=== PATIENT | male | born 1985 | race Two or more races ===

== ENCOUNTER 2016-11-22 04:44 | Emergency (ER) | payer OTHER ==
[~2016-11-22] VITALS: Ht 180.3 cm; Wt 77.1 kg
[~2016-11-22 04:44] MED LIST: CIPROFLOXACIN500 M2 ORAL; ODEFSEY TABLET1 EACH PO; RANITIDINE HCL150 MG ORAL; ZOFRAN ODT4 MG ORAL
[2016-11-22 04:57] VITALS: BP 151/103
[2016-11-22] MEDS ORDERED: HYDROmorphone 1mg/ml Carpuject IVP ONE (05:15)
[2016-11-22] MEDS ORDERED: Pantoprazole Inj IV ONE (05:15)
[2016-11-22 05:17] LABS: BASOPHILS % (AUTO) 0.2 % (0.0-2.0); EOSINOPHILS % (AUTO) 0.1 % (0.0-3.0); LYMPHOCYTES % (AUTO) 17.9 % (20.0-45.0); MEAN CORPUSCULAR HEMOGLOBIN 32.9 PG (27.0-31.0); MEAN CORPUSCULAR HGB CONC 33.6 G/DL (32.0-36.0); MEAN CORPUSCULAR VOLUME 98 FL (80-99); MEAN PLATELET VOLUME 10.3 FL (6.5-10.1); MONOCYTES % (AUTO) 5.3 % (1.0-10.0); NEUTROPHILS % (AUTO) 76.5 % (45.0-75.0); PLATELET COUNT 151 K/UL (150-450); RED BLOOD COUNT 4.54 M/UL (4.70-6.10); RED CELL DISTRIBUTION WIDTH 10.9 % (11.6-14.8); WHITE BLOOD COUNT 5.8 K/UL (4.8-10.8)
--- NOTE | 2016-11-22 05:21 | Emergency Room Report ---
History of Present Illness General Chief Complaint: Nausea, Vomiting, and Diarrhea Source: Patient Present Illness HPI Is a 31-year-old male with a history alcohol abuse. He also has a history alcoholic gastritis. Last drink was over a week ago. He presents with chief complaint of epigastric pain and intractable vomiting. Onset for one day. Pain is 10 out of 10. Unable to keep anything down. Denies any fever chills patient is symptom in the past. No radiation. No diarrhea. No fever. Allergies: Coded Allergies: No Known Allergies (Unverified , 09/05/14) Patient History Past Medical History: see triage record, old chart reviewed Past Surgical History: other Pertinent Family History: none Social History: Reports: alcohol use Immunizations: other Reviewed Nursing Documentation: PMH: Agreed, PSxH: Agreed Review of Systems Eye: Denies: blurred vision, eye pain ENT: Denies: ear pain, nose congestion, throat swelling Respiratory: Denies: cough, shortness of breath Cardiovascular: Denies: chest pain, palpitations Gastrointestinal: Reports: abdominal pain, nausea, vomiting, Denies: diarrhea Musculoskeletal: Denies: back pain, joint pain Skin: Denies: rash Neurological: Denies: headache, numbness Endocrine: Denies: increased thirst, increased urine Hematologic/Lymphatic: Denies: easy bruising All Other Systems: negative except mentioned in HPI Physical Exam Vital Signs Date Time Temp Pulse Resp B/P Pulse Ox O2 Delivery O2 Flow Rate FiO2 11/22/16 04:49 98.1 86 18 151/103 98 Room Air vitals with hypertension Sp02 EP Interpretation: reviewed, normal General Appearance: well appearing, no apparent distress, alert Head: normocephalic, atraumatic Eyes: bilateral eye EOMI, bilateral eye PERRL ENT: hearing grossly normal, normal pharynx Neck: full range of motion, supple, no meningismus Respiratory: chest non-tender, lungs clear, normal breath sounds Cardiovascular #1: regular rate, rhythm, no murmur Gastrointestinal: no mass, no organomegaly, no bruit, non-distended, abnormal bowel sounds - Increased, tenderness - Epigastric area Musculoskeletal: back normal, gait/station normal, normal range of motion Neurologic: alert, oriented x3 Psychiatric: mood/affect normal Skin: warm/dry Medical Decision Making Diagnostic Impression: Primary Impression: Alcoholic gastritis Qualified Codes: K29.20 - Alcoholic gastritis without bleeding Additional Impression: Vomiting Qualified Codes: R11.2 - Nausea with vomiting, unspecified ER Course Patient has with abdominal pain and vomiting. He felt better now. No evidence of obstruction. We'll discharge home. Lab Results Impression labs unremarkable Last Vital Signs Date Time Temp Pulse Resp B/P Pulse Ox O2 Delivery O2 Flow Rate FiO2 11/22/16 04:49 98.1 86 18 151/103 98 Room Air Status: improved Disposition: HOME, SELF-CARE Condition: Stable Scripts Omeprazole Magnesium (PRILOSEC OTC) 20 Mg Tablet. 20 MG ORAL DAILY, #30 TAB Prov: VERONIKA SALAZAR M.D. 11/22/16 Referrals: [facility],REFERRING (PCP) Patient Instructions: DIET, Vomiting or Diarrhea [6yr-Adult] Additional Instructions: Abstain from alcohol. Followup your DrJames in 2 to 3 days. Return if worse. VERONIKA SALAZAR M.D. Nov 22, 2016 05:21
[2016-11-22 05:31] LABS: ALANINE AMINOTRANSFERASE 11 U/L (3-41); ALBUMIN/GLOBULIN RATIO 1.2 (1.0-2.7); ANION GAP 11 (5-15); ASPARTATE AMINO TRANSFERASE 24 U/L (5-40); CALCIUM 9.8 mg/dL (8.6-10.2); CARBON DIOXIDE 28 mEQ/L (20-30); CHLORIDE 99 mEQ/L (98-107); GLOMERULAR FILTRATION RATE > 60 mL/min (>60); HEMOLYSIS 4; LIPASE 22 U/L (< 60); POTASSIUM 3.7 mEQ/L (3.4-4.9); SODIUM 138 mEQ/L (135-145); TOTAL PROTEIN 8.6 g/dL (6.6-8.7)
[2016-11-22] MEDS ORDERED: PRILOSEC OTC20 MG ORAL (06:16)
[2016-11-22 06:25] VITALS: BP 151/103
== END 2016-11-22 06:29 | disposition home or self-care (01) ==
LOC: EMR 04:59
DX: K29.20 Alcoholic gastritis without bleeding (principal)
CPT/HCPCS: 36415; 80053; 83690; 85025; 96374; 96375; 99284; C9113; J1170; J2405

== ENCOUNTER 2020-02-10 16:43 | Emergency (ER) | payer SELFPAY ==
[~2020-02-10] VITALS: Ht 180.3 cm; Wt 86.2 kg
[~2020-02-10 16:43] MED LIST changes: +PRILOSEC OTC20 MG ORAL
[2020-02-10 16:57] VITALS: BP 154/103
--- NOTE | 2020-02-10 16:57 | NUR ---
ED Nurse Note: Pt walked in to ED from home c/o nausea and vomiting onset today. Deneis abdominal pain/ diarrhea. No episode of vomiting at this time. AAOx4, verbally responisve. No SOB, on room air. ERMD at bedside.
--- NOTE | 2020-02-10 17:12 | Emergency Room Report ---
History of Present Illness General Chief Complaint: Vomiting Source: Patient Present Illness HPI Disclaimer: Please note that this report is being documented using [employer] technology. This can lead to erroneous entry secondary to incorrect interpretation by the dictating instrument. HPI: 34-year-old otherwise healthy male presents for evaluation of vomiting. Patient states he awoke this morning and has been vomiting since. Unable to hold down solids or liquids. Reports mild diarrhea. Denies abdominal pain or cramping. Reports increased belching and flatulence. Denies hematemesis, melena or hematochezia. He ate takeout food last night. Denies alcohol or drug use. Denies headache, fever, chills, chest pain, shortness of breath, cough, rash or other symptoms. PMH: Denies PSH: Denies Allergies: Denies Social Hx: Denies Allergies: Coded Allergies: No Known Allergies (Unverified , 09/05/14) COVID-19 Screening Contact w/high risk pt: No Experienced COVID-19 symptoms?: No COVID-19 Testing performed LMSW: No Nursing Documentation-PMH Past Medical History: No Stated History Review of Systems All Other Systems: negative except mentioned in HPI Physical Exam Vital Signs Date Time Temp Pulse Resp B/P (MAP) Pulse Ox O2 Delivery O2 Flow Rate FiO2 02/10/20 16:54 98.1 60 18 154/103 (120) 97 Room Air General: Awake and alert, no acute distress HEENT: NC/AT. EOMI. Cardiovascular: RRR. S1 and S2 normal. No murmur appreciated Resp: Normal work of breathing. No cough, wheezing or crackles appreciated Abdomen: Abdomen is soft, nondistended. Nontender, no masses, no rebound Skin: Intact. No abrasions, laceration or rash over the exposed skin MSK: Normal tone and bulk. Moving all extremities. No obvious deformity. Neuro: Awake and alert. Mentating appropriately. Medical Decision Making Diagnostic Impression: Primary Impression: Gastritis ER Course Is a 34-year-old male presenting for evaluation of persistent vomiting since this morning. Differential includes was not limited to gastritis, gastroenteritis, pancreatitis, cholecystitis, sinusitis, food poisoning, diverticulitis among others. He is well-appearing, abdominal exam is u nremarkable. Patient given IV fluids, antacids, antiemetics. Labs returned within normal limits. After observing the patient in the emergency department some time his symptoms appear to be under control. He was able to eat and drink at bedside. Requesting prescription for antacids and antinausea medications which I will provide. Likely a gastritis, possibly due to food. Will discharge home with outpatient follow-up. Instructed to return with new or worsening symptoms. He understands and agrees with this treatment plan. Laboratory Tests Test 02/10/20 17:16 02/10/20 18:16 White Blood Count 14.3 K/UL (4.8-10.8) H Red Blood Count 4.36 M/UL (4.70-6.10) L Hemoglobin 14.4 G/DL (14.2-18.0) Hematocrit 42.7 % (42.0-52.0) Mean Corpuscular Volume 98 FL (80-99) Mean Corpuscular Hemoglobin 33.1 PG (27.0-31.0) H Mean Corpuscular Hemoglobin Concent 33.8 G/DL (32.0-36.0) Red Cell Distribution Width 11.9 % (11.6-14.8) Platelet Count 173 K/UL (150-450) Mean Platelet Volume 10.7 FL (6.5-10.1) H Neutrophils (%) (Auto) % (45.0-75.0) Lymphocytes (%) (Auto) % (20.0-45.0) Monocytes (%) (Auto) % (1.0-10.0) Eosinophils (%) (Auto) % (0.0-3.0) Basophils (%) (Auto) % (0.0-2.0) Differential Total Cells Counted 100 Neutrophils % (Manual) 87 % (45-75) H Lymphocytes % (Manual) 10 % (20-45) L Monocytes % (Manual) 1 % (1-10) Eosinophils % (Manual) 0 % (0-3) Basophils % (Manual) 0 % (0-2) Band Neutrophils 2 % (0-8) Platelet Estimate Adequate Platelet Morphology Normal Sodium Level 139 MMOL/L (136-145) Potassium Level 3.8 MMOL/L (3.5-5.1) Chloride Level 103 MMOL/L (98-107) Carbon Dioxide Level 26 MMOL/L (21-32) Anion Gap 10 mmol/L (5-15) Blood Urea Nitrogen 18 mg/dL (7-18) Creatinine 1.2 MG/DL (0.55-1.30) Estimated Glomerular Filtration Rate > 60 mL/min (>60) Glucose Level 142 MG/DL (74-106) H Calcium Level 9.4 MG/DL (8.5-10.1) Total Bilirubin 0.7 MG/DL (0.2-1.0) Aspartate Amino Transferase (AST) 21 U/L (15-37) Alanine Aminotransferase (ALT) 16 U/L (12-78) Alkaline Phosphatase 42 U/L (46-116) L Total Protein 7.6 G/DL (6.4-8.2) Albumin 4.5 G/DL (3.4-5.0) Globulin 3.1 g/dL Albumin/Globulin Ratio 1.5 (1.0-2.7) Lipase 72 U/L (73-393) L Urine Color Yellow Urine Appearance Clear Urine pH 8 (4.5-8.0) Urine Specific [place] 1.010 (1.005-1.035) Urine Protein 1+ (NEGATIVE) H Urine Glucose (UA) Negative (NEGATIVE) Urine Ketones 4+ (NEGATIVE) H Urine Blood 1+ (NEGATIVE) H Urine Nitrite Negative (NEGATIVE) Urine Bilirubin Negative (NEGATIVE) Urine Urobilinogen Normal MG/DL (0.0-1.0) Urine Leukocyte Esterase Negative (NEGATIVE) Urine RBC 5-10 /HPF (0 - 0) H Urine WBC 0-2 /HPF (0 - 0) Urine Squamous Epithelial Cells None /LPF (NONE/OCC) Urine Bacteria Few /HPF (NONE) Last Vital Signs Date Time Temp Pulse Resp B/P (MAP) Pulse Ox O2 Delivery O2 Flow Rate FiO2 02/10/20 16:57 60 18 Room Air 02/10/20 16:57 98.1 154/103 97 Disposition: HOME, SELF-CARE Condition: Stable Scripts Famotidine* (Pepcid 20mg tablet*) 20 Mg Tablet 20 MG ORAL DAILY for Gerd, #30 TAB 0 Refills Prov: Evelio Leiva MD 02/10/20 Ondansetron Odt* (ZOFRAN ODT*) 4 Mg Tab.rapdis 4 MG BC EVERY 6 HOURS PRN for Nausea & Vomiting, #20 TAB 0 Refills Prov: Evelio Leiva MD 02/10/20 Evelio Leiva MD Feb 10, 2020 17:12
--- NOTE | 2020-02-10 17:16 | NUR ---
ED Nurse Note: IV line established. Blood sent to lab.
[2020-02-10 17:34] LABS: HEMATOCRIT 42.7 % (42.0-52.0); HEMOGLOBIN 14.4 G/DL (14.2-18.0); MEAN CORPUSCULAR VOLUME 98 FL (80-99); PLATELET COUNT 173 K/UL (150-450); RED BLOOD COUNT 4.36 M/UL (4.70-6.10); RED CELL DISTRIBUTION WIDTH 11.9 % (11.6-14.8); WHITE BLOOD COUNT 14.3 K/UL (4.8-10.8)
[2020-02-10 17:43] LABS: ANION GAP 10 mmol/L (5-15); BLOOD UREA NITROGEN 18 mg/dL (7-18); CALCIUM 9.4 MG/DL (8.5-10.1); CARBON DIOXIDE 26 MMOL/L (21-32); CHLORIDE 103 MMOL/L (98-107); CREATININE 1.2 MG/DL (0.55-1.30); POTASSIUM 3.8 MMOL/L (3.5-5.1); SODIUM 139 MMOL/L (136-145)
[2020-02-10 17:49] LABS: ALANINE AMINOTRANSFERASE 16 U/L (12-78); ALBUMIN 4.5 G/DL (3.4-5.0); ALBUMIN/GLOBULIN RATIO 1.5 (1.0-2.7); ALKALINE PHOSPHATASE 42 U/L (46-116); ASPARTATE AMINO TRANSFERASE 21 U/L (15-37); BILIRUBIN,TOTAL 0.7 MG/DL (0.2-1.0)
--- NOTE | 2020-02-10 18:16 | NUR ---
ED Nurse Note: Urine sent to lab.
[2020-02-10 18:48] LABS: APPEARANCE,URINE CLEAR; BILIRUBIN, URINE NEGATIVE (NEGATIVE); GLUCOSE, URINE (UA) NEGATIVE (NEGATIVE); KETONES,URINE 4+ (NEGATIVE); LEUKOCYTE ESTERASE ,URINE NEGATIVE (NEGATIVE); NITRITE,URINE NEGATIVE (NEGATIVE); PH,URINE 8 (4.5-8.0); PROTEIN,URINE 1+ (NEGATIVE); UROBILINOGEN,URINE NORMAL MG/DL (0.0-1.0)
[2020-02-10 18:52] LABS: COLOR,URINE YELLOW
[2020-02-10] MEDS ORDERED: ONDANSETRON ODT4 MG BC (19:16)
[2020-02-10] MEDS ORDERED: FAMOTIDINE20 MG ORAL (19:26)
[2020-02-10 19:33] VITALS: BP 123/74
--- NOTE | 2020-02-10 19:33 | NUR ---
ED Nurse Note: Pt cleared by ERMD for discharge. DC instructions/prescription was given and explained to pt and verbalized understanding of teachings. All medical deviecs such as ID band and IV line removed. Pt is AAO x4, ambulatory and left with all personal belongings.
== END 2020-02-10 19:33 | disposition home or self-care (01) ==
LOC: EMR 18:45
DX: K29.70 Gastritis, unspecified, without bleeding (principal)
CPT/HCPCS: 36415; 80053; 81003; 83690; 85007; 85025; 96361; 96374; 96375; 99284; J2405; J7030; S0028

== ENCOUNTER 2020-02-12 04:32 | Emergency (ER) | payer SELFPAY ==
[~2020-02-12] VITALS: Ht 180.3 cm; Wt 86.2 kg
[~2020-02-12 04:32] MED LIST changes: +FAMOTIDINE20 MG ORAL; +ONDANSETRON ODT4 MG BC
[2020-02-12 04:44] VITALS: BP 156/108
--- NOTE | 2020-02-12 04:44 | NUR ---
ED Nurse Note: pt walked into ED from home c/o n/v. Pt stated he was here yesterday for food poisoning and felt better after treatment. Today in the AM pt continued vomiting and condition worsened. Pt is dry heaving on arrival, breathing even and unlabored. Vital signs stable as documented.
--- NOTE | 2020-02-12 04:53 | Emergency Room Report ---
History of Present Illness General Chief Complaint: Nausea, Vomiting, and Diarrhea Source: Patient, Medical Record Present Illness HPI This is a 34-year-old male with no past medical history. He does have a history of alcoholic gastritis in the past. He presents with chief complaint of nausea and vomiting abdominal pain. Onset for the last 2 days. He woke up with this. Is actually here yesterday. Laboratory data did not show any leukocytosis but otherwise unremarkable. He got better and was discharged home. He said that since then is been persisting vomiting. Prescribed medication not helping. No fever chills. Vomiting is nonbloody nonbilious. No longer having diarrhea. Nothing made it better. Nothing made it worse. Pain is epigastric in nature. 7 out of 10. Allergies: Coded Allergies: No Known Allergies (Unverified , 09/05/14) COVID-19 Screening Contact w/high risk pt: No Experienced COVID-19 symptoms?: No COVID-19 Testing performed MENTAL HEALTH COORDINATOR: No Patient History Past Medical History: see triage record, old chart reviewed Past Surgical History: none Pertinent Family History: none Social History: Reports: alcohol use - history Immunizations: other Reviewed Nursing Documentation: PMH: Agreed; PSxH: Agreed Review of Systems Eye: Denies: eye pain, blurred vision ENT: Denies: ear pain, nose congestion, throat swelling Respiratory: Denies: cough, shortness of breath Cardiovascular: Denies: chest pain, palpitations Gastrointestinal: Reports: abdominal pain, nausea, vomiting; Denies: diarrhea Musculoskeletal: Denies: back pain, joint pain Skin: Denies: rash Neurological: Denies: headache, numbness Endocrine: Denies: increased thirst, increased urine Hematologic/Lymphatic: Denies: easy bruising All Other Systems: negative except mentioned in HPI Physical Exam Vital Signs Date Time Temp Pulse Resp B/P (MAP) Pulse Ox O2 Delivery O2 Flow Rate FiO2 02/12/20 04:36 98.4 57 22 156/108 (124) 97 Room Air Vitals with high blood pressure Sp02 EP Interpretation: reviewed, normal General Appearance: well appearing, no apparent distress, alert Head: normocephalic, atraumatic Eyes: bilateral eye PERRL, bilateral eye EOMI ENT: hearing grossly normal, normal pharynx Neck: full range of motion, supple, no meningismus Respiratory: chest non-tender, lungs clear, normal breath sounds Cardiovascular #1: regular rate, rhythm, no murmur Gastrointestinal: no mass, no organomegaly, no bruit, non-distended, tenderness - Epigastric, decreased bowel sounds Musculoskeletal: back normal, normal range of motion, gait/station normal Psychiatric: mood/affect normal Medical Decision Making Diagnostic Impression: Primary Impression: Abdominal pain Qualified Codes: R10.84 - Generalized abdominal pain Additional Impressions: Nausea & vomiting Qualified Codes: R11.2 - Nausea with vomiting, unspecified Hypokalemia JOE (acute kidney injury) ER Course Patient presents with nausea and vomiting. Also with abdominal pain. This may be cyclic vomiting syndrome, gastroparesis, foodborne illness to name a few. Better after IV fluids and pain medication. Will observe if he improved and tolerate p.o. If not may be admitted. CT/MRI/US Diagnostic Results CT/MRI/US Diagnostic Results : Imaging Test Ordered: CT abdomen and pelvis Impression Read by radiologist. Negative. Last Vital Signs Date Time Temp Pulse Resp B/P (MAP) Pulse Ox O2 Delivery O2 Flow Rate FiO2 02/12/20 04:44 98.4 88 22 156/108 97 Room Air Status: improved Disposition: HOME, SELF-CARE Condition: Stable Scripts Ondansetron (Zofran) 4 Mg Tablet 4 MG ORAL Q6H PRN for Nausea & Vomiting, #30 TAB 0 Refills Prov: Ziggy Torres MD 02/12/20 Additional Instructions: Advance diet as tolerated. Follow-up with your doctor in 2-3 days if not better. Return if symptoms worsen. Ziggy Torres MD Feb 12, 2020 04:53
[2020-02-12] MEDS ORDERED: Pantoprazole Inj IV ONE (05:00)
[2020-02-12] MEDS ORDERED: HYDROmorphone 1mg/ml Carpuject IVP ONE (05:00)
--- NOTE | 2020-02-12 05:10 | NUR ---
ED Nurse Note: urine and blood sent to lab
--- NOTE | 2020-02-12 05:13 | NUR ---
ED Nurse Note: pt went down to CT via w/c accompanied by CT staff, pt in stable condition.
--- NOTE | 2020-02-12 05:20 | NUR ---
ED Nurse Note: pt back from CT in stable condition.
[2020-02-12 05:30] LABS: APPEARANCE,URINE CLEAR; BILIRUBIN, URINE NEGATIVE (NEGATIVE); GLUCOSE, URINE (UA) NEGATIVE (NEGATIVE); KETONES,URINE NEGATIVE (NEGATIVE); LEUKOCYTE ESTERASE ,URINE 1+ (NEGATIVE); NITRITE,URINE NEGATIVE (NEGATIVE); PH,URINE 5 (4.5-8.0); PROTEIN,URINE 1+ (NEGATIVE); UROBILINOGEN,URINE NORMAL MG/DL (0.0-1.0)
[2020-02-12 05:40] LABS: CALCIUM 8.6 MG/DL (8.5-10.1); CREATININE 1.5 MG/DL (0.55-1.30); POTASSIUM 2.9 MMOL/L (3.5-5.1)
[2020-02-12 05:42] LABS: BASOPHILS % (AUTO) 0.8 % (0.0-2.0); EOSINOPHILS % (AUTO) 0.8 % (0.0-3.0); HEMATOCRIT 40.5 % (42.0-52.0); HEMOGLOBIN 14.1 G/DL (14.2-18.0); LYMPHOCYTES % (AUTO) 38.4 % (20.0-45.0); MEAN CORPUSCULAR VOLUME 94 FL (80-99); MONOCYTES % (AUTO) 7.1 % (1.0-10.0); NEUTROPHILS % (AUTO) 52.9 % (45.0-75.0); PLATELET COUNT 190 K/UL (150-450); RED BLOOD COUNT 4.32 M/UL (4.70-6.10); RED CELL DISTRIBUTION WIDTH 11.1 % (11.6-14.8); WHITE BLOOD COUNT 12.5 K/UL (4.8-10.8)
[2020-02-12 05:45] LABS: ALBUMIN 4.1 G/DL (3.4-5.0); ALBUMIN/GLOBULIN RATIO 1.4 (1.0-2.7); BILIRUBIN,TOTAL 0.6 MG/DL (0.2-1.0); COLOR,URINE YELLOW
[2020-02-12] MEDS ORDERED: ZOFRAN4 MG ORAL (05:51)
--- NOTE | 2020-02-12 06:14 | NUR ---
ED Nurse Note: PO challenge done. pt tolerated apple juice. no c/o nausea, pt continues to burp.
--- NOTE | 2020-02-12 06:20 | Diagnostic Imaging Report ---
EXAM: CT Abdomen and Pelvis Without Intravenous Contrast CLINICAL HISTORY: ABD PAIN TECHNIQUE: Axial computed tomography images of the abdomen and pelvis without intravenous contrast. CTDI is 7 mGy and DLP is 397.1 mGy-cm. One or more of the following dose reduction techniques were used: automated exposure control, adjustment of the mA and/or kV according to patient size, use of iterative reconstruction technique. COMPARISON: CT abdomen and pelvis 09/05/2014 FINDINGS: Lung bases: Unremarkable. ABDOMEN: Liver: Unremarkable. Gallbladder and bile ducts: Unremarkable. Pancreas: Unremarkable. Spleen: Unremarkable. Adrenals: Unremarkable. Kidneys and ureters: Incidental note of a horseshoe kidney. No obstructing stones. No hydronephrosis. Stomach and bowel: Unremarkable. PELVIS: Appendix: No findings to suggest acute appendicitis. Bladder: Unremarkable. No stones. Reproductive: Unremarkable as visualized. ABDOMEN and PELVIS: Intraperitoneal space: Unremarkable. No free air. No significant fluid collection. Bones/joints: No acute fracture. Soft tissues: Unremarkable. Vasculature: Unremarkable. Lymph nodes: Unremarkable. IMPRESSION: 1. No acute abnormality. 2. Incidental note of a horseshoe kidney.
[2020-02-12 07:05] VITALS: BP 143/97
--- NOTE | 2020-02-12 07:05 | NUR ---
ED Nurse Note: Pt resting in bed, IV site intact and patent, k+ still running. will DC pt after completion of fluids per ermd. No other outstanding orders at this time.
--- NOTE | 2020-02-12 07:05 | NUR ---
HAND-OFF: Report given to DENNY Sahu.
[2020-02-12 07:40] VITALS: BP 135/89
--- NOTE | 2020-02-12 07:40 | NUR ---
ED Nurse Note: Pt reports feeling better, pt fluids completed. IV site removed and dressed. pt ambulated to restroom with steady gait. pt was given DC and prescription instructions and verbalized understanding. pt took all belongings with him.
== END 2020-02-12 07:40 | disposition home or self-care (01) ==
LOC: EMR 04:57
DX: R10.84 Generalized abdominal pain (principal); R11.2 Nausea with vomiting, unspecified; E87.6 Hypokalemia; N17.9 Acute kidney failure, unspecified; Q63.1 Lobulated, fused and horseshoe kidney
CPT/HCPCS: 36415; 74176; 80053; 81003; 83690; 85025; 96361; 96365; 96366; 96375; 99284; C9113; J1170; J2405; J3480; J7030

== ENCOUNTER 2020-03-25 11:08 | Emergency (ER) | payer BC ==
[~2020-03-25] VITALS: Ht 180.3 cm; Wt 83.9 kg
[~2020-03-25 11:08] MED LIST changes: +ZOFRAN4 MG ORAL
--- NOTE | 2020-03-25 11:15 | NUR ---
ED Nurse Note: Pt ambulated to ED from home d/t nausea/diarrhea/vomiting that started this morning. Pt is AOx4, noted with generalized weakness, cooperative to care, VSS, pt denies any abdominal pain. Pt was placed on bed and gown, will continue to monitor.
[2020-03-25 11:19] VITALS: BP 150/106
--- NOTE | 2020-03-25 11:45 | NUR ---
ED Nurse Note: pt unable to provide urine sample as of now.
--- NOTE | 2020-03-25 11:55 | NUR ---
ED Nurse Note: pt actively vomited x 1, ermd at bedside.
--- NOTE | 2020-03-25 11:59 | Emergency Room Report ---
History of Present Illness General Chief Complaint: Nausea, Vomiting, and Diarrhea Source: Patient, Medical Record Present Illness HPI Disclaimer: Please note that this report is being documented using [employer] technology. This can lead to erroneous entry secondary to incorrect interpr etation by the dictating instrument. HPI: 34-year-old male with a history of gastritis presents for evaluation abdominal pain, vomiting. Symptoms began this morning. He had a ham sandwich last night before going to bed. Awoke with epigastric cramping, increased belching, acid reflux symptoms and abdominal pain. Multiple episodes of bilious emesis. He denies history of pancreatitis liver disease or biliary disease. Denies alcohol or drug use. No prior abdominal surgeries. States this happens to him every few years. Usually helped by IV Pepcid. Abdominal cramping is improved. He continues to feel nauseated and belching. Denies recent fever, chills, chest pain, palpitations, shortness of breath, cough, diarrhea, constipation dysuria or hematuria. PMH: Gastritis PSH: Denied Allergies: None Social Hx: Denied Allergies: Coded Allergies: No Known Allergies (Unverified , 09/05/14) COVID-19 Screening Contact w/high risk pt: No Experienced COVID-19 symptoms?: No COVID-19 Testing performed ELECTRONICS TECHNICIAN APPRENTICE: Yes COVID-19 Screening: Negative COVID-19 COVID-19 Testing Source: 03/23/20 Nursing Documentation-PM Past Medical History: No History, Except For Review of Systems All Other Systems: negative except mentioned in HPI Physical Exam Vital Signs Date Time Temp Pulse Resp B/P (MAP) Pulse Ox O2 Delivery O2 Flow Rate FiO2 03/25/20 11:14 98.2 76 20 150/106 (121) 95 Room Air General: Awake and alert, vomiting, appears uncomfortable HEENT: NC/AT. EOMI. Cardiovascular: RRR. S1 and S2 normal. No murmur appreciated Resp: Normal work of breathing. No cough, wheezing or crackles appreciated Abdomen: Abdomen is soft, nondistended. Mild tenderness in the epigastrium. No guarding, no peritoneal signs. Negative Sanchez's. No tenderness in the remainder of the abdomen. No flank pain. Skin: Intact. No abrasions, laceration or rash over the exposed skin MSK: Normal tone and bulk. Moving all extremities. No obvious deformity. Neuro: Awake and alert. Mentating appropriately. Medical Decision Making Diagnostic Impression: Primary Impression: Gastritis Additional Impression: Abdominal pain ER Course 34-year-old male history of gastritis presents for evaluation of abdominal pain and vomiting. Symptoms consistent with prior episode of gastritis. Labs obtained showing lipase within normal levels and other labs unremarkable as well. Patient received IV fluids and antiemetics which controlled his symptoms. Belly exam remains benign. Do not believe he requires emergent imaging at this time. He stable for outpatient follow-up. Additional antiemetics prescribed. Instructed to return with new or worsening symptoms. Laboratory Tests Test 03/25/20 11:33 03/25/20 12:54 White Blood Count 16.8 K/UL (4.8-10.8) H Red Blood Count 4.40 M/UL (4.70-6.10) L Hemoglobin 14.7 G/DL (14.2-18.0) Hematocrit 44.9 % (42.0-52.0) Mean Corpuscular Volume 102 FL (80-99) H Mean Corpuscular Hemoglobin 33.4 PG (27.0-31.0) H Mean Corpuscular Hemoglobin Concent 32.7 G/DL (32.0-36.0) Red Cell Distribution Width 11.8 % (11.6-14.8) Platelet Count 177 K/UL (150-450) Mean Platelet Volume 9.8 FL (6.5-10.1) Neutrophils (%) (Auto) % (45.0-75.0) Lymphocytes (%) (Auto) % (20.0-45.0) Monocytes (%) (Auto) % (1.0-10.0) Eosinophils (%) (Auto) % (0.0-3.0) Basophils (%) (Auto) % (0.0-2.0) Differential Total Cells Counted 100 Neutrophils % (Manual) 90 % (45-75) H Lymphocytes % (Manual) 9 % (20-45) L Monocytes % (Manual) 1 % (1-10) Eosinophils % (Manual) 0 % (0-3) Basophils % (Manual) 0 % (0-2) Band Neutrophils 0 % (0-8) Platelet Estimate Adequate Platelet Morphology Normal Macrocytosis 1+ Sodium Level 141 MMOL/L (136-145) Potassium Level 3.9 MMOL/L (3.5-5.1) Chloride Level 104 MMOL/L (98-107) Carbon Dioxide Level 29 MMOL/L (21-32) Anion Gap 8 mmol/L (5-15) Blood Urea Nitrogen 19 mg/dL (7-18) H Creatinine 1.0 MG/DL (0.55-1.30) Estimated Glomerular Filtration Rate > 60 mL/min (>60) Glucose Level 134 MG/DL (74-106) H Calcium Level 8.8 MG/DL (8.5-10.1) Total Bilirubin 0.6 MG/DL (0.2-1.0) Aspartate Amino Transferase (AST) 24 U/L (15-37) Alanine Aminotransferase (ALT) 20 U/L (12-78) Alkaline Phosphatase 44 U/L (46-116) L Total Protein 8.2 G/DL (6.4-8.2) Albumin 4.5 G/DL (3.4-5.0) Globulin 3.7 g/dL Albumin/Globulin Ratio 1.2 (1.0-2.7) Lipase 87 U/L (73-393) Urine Color Yellow Urine Appearance Clear Urine pH 6.5 (4.5-8.0) Urine Specific [place] 1.020 (1.005-1.035) Urine Protein 1+ (NEGATIVE) H Urine Glucose (UA) 2+ (NEGATIVE) H Urine Ketones 4+ (NEGATIVE) H Urine Blood 1+ (NEGATIVE) H Urine Nitrite Negative (NEGATIVE) Urine Bilirubin Negative (NEGATIVE) Urine Urobilinogen Normal MG/DL (0.0-1.0) Urine Leukocyte Esterase Negative (NEGATIVE) Urine RBC 2-4 /HPF (0 - 0) H Urine WBC 0 /HPF (0 - 0) Urine Squamous Epithelial Cells Occasional /LPF Urine Bacteria Occasional /HPF (NONE) Urine Mucus Few /LPF (NONE/OCC) H Last Vital Signs Date Time Temp Pulse Resp B/P (MAP) Pulse Ox O2 Delivery O2 Flow Rate FiO2 03/25/20 11:19 98.2 20 150/106 95 Room Air 03/25/20 11:14 76 Disposition: HOME, SELF-CARE Condition: Stable Scripts Famotidine* (Pepcid 20mg tablet*) 20 Mg Tablet 20 MG ORAL DAILY for Gerd, #30 TAB 0 Refills Prov: Evelio Leiva MD 11/23/20 Ondansetron Odt* (ZOFRAN ODT*) 4 Mg Tab.rapdis 4 MG BC EVERY 6 HOURS PRN for Nausea & Vomiting, #20 TAB 0 Refills Prov: Evelio Leiva MD 03/25/20 Evelio Leiva MD Mar 25, 2020 11:58
[2020-03-25] MEDS ORDERED: Mylanta II UD 30ml ORAL ONE (12:00)
[2020-03-25] MEDS ORDERED: Lidocaine 2% Visc 15ml soln ORAL ONE (12:00)
[2020-03-25] MEDS ORDERED: Dicyclomine HCl 10mg/5ml oral soln ORAL ONE (12:00)
[2020-03-25 12:01] LABS: HEMATOCRIT 44.9 % (42.0-52.0); HEMOGLOBIN 14.7 G/DL (14.2-18.0); MEAN CORPUSCULAR VOLUME 102 FL (80-99); PLATELET COUNT 177 K/UL (150-450); RED CELL DISTRIBUTION WIDTH 11.8 % (11.6-14.8); WHITE BLOOD COUNT 16.8 K/UL (4.8-10.8)
[2020-03-25 12:05] LABS: ANION GAP 8 mmol/L (5-15); BLOOD UREA NITROGEN 19 mg/dL (7-18); CALCIUM 8.8 MG/DL (8.5-10.1); CARBON DIOXIDE 29 MMOL/L (21-32); CHLORIDE 104 MMOL/L (98-107); POTASSIUM 3.9 MMOL/L (3.5-5.1); SODIUM 141 MMOL/L (136-145)
[2020-03-25 12:09] LABS: ALANINE AMINOTRANSFERASE 20 U/L (12-78); ALBUMIN 4.5 G/DL (3.4-5.0); ALBUMIN/GLOBULIN RATIO 1.2 (1.0-2.7); ALKALINE PHOSPHATASE 44 U/L (46-116); ASPARTATE AMINO TRANSFERASE 24 U/L (15-37); BILIRUBIN,TOTAL 0.6 MG/DL (0.2-1.0)
[2020-03-25] MEDS ORDERED: Metoclopramide 10mg/2ml Inj IVP ONE (12:45)
[2020-03-25] MEDS ORDERED: DiphenhydrAMINE 50mg/ml Inj IVP ONE (12:45)
[2020-03-25 13:43] LABS: APPEARANCE,URINE CLEAR; BILIRUBIN, URINE NEGATIVE (NEGATIVE); GLUCOSE, URINE (UA) 2+ (NEGATIVE); KETONES,URINE 4+ (NEGATIVE); LEUKOCYTE ESTERASE ,URINE NEGATIVE (NEGATIVE); NITRITE,URINE NEGATIVE (NEGATIVE); PH,URINE 6.5 (4.5-8.0); PROTEIN,URINE 1+ (NEGATIVE); UROBILINOGEN,URINE NORMAL MG/DL (0.0-1.0)
[2020-03-25 13:45] LABS: COLOR,URINE YELLOW
[2020-03-25] MEDS ORDERED: FAMOTIDINE20 MG ORAL (13:52)
[2020-03-25] MEDS ORDERED: ONDANSETRON ODT4 MG BC (13:52)
[2020-03-25 14:26] VITALS: BP 148/98
--- NOTE | 2020-03-25 14:26 | NUR ---
ER DISCHARGE NOTE: Patient is cleared to be discharged per ERMD, pt is aox4, on room air, with stable vital signs. pt was given dc and prescription instructions, pt was able to verbalize understanding, pt id band and iv site removed without complications. pt is able to ambulate with steady gait. pt took all belongings.
== END 2020-03-25 14:26 | disposition home or self-care (01) ==
LOC: EMR 12:00
DX: K29.70 Gastritis, unspecified, without bleeding (principal)
CPT/HCPCS: 36415; 80053; 81003; 83690; 85007; 85025; 96361; 96374; 96375; 99284; J1200; J2405; J2765; J7030; S0028